=== PATIENT | female | born 1995 | race Caucasian/White ===

== ENCOUNTER 2016-09-05 15:15 | Emergency (ER) | payer BC, OTHER ==
[~2016-09-05] VITALS: Ht 170.2 cm; Wt 72.6 kg
[2016-09-05] MEDS ORDERED: BIRTH CONTOL (15:48)
[2016-09-05] MEDS ORDERED: EPIN0.3P2 IJ (15:49)
[2016-09-05] MEDS ORDERED: NS IV 1000 ML 1,000 ML IV STA (15:59)
[2016-09-05] MEDS ORDERED: KETOROLAC 30 MG/ML VIAL IVP STA (15:59)
[2016-09-05] MEDS ORDERED: fentaNYL INJECTION 100 MCG/2 ML AMP IVP STA (15:59)
[2016-09-05] MEDS ORDERED: ONDANSETRON 4 MG/2 ML (SDV) Z0FRAN IVP ONE (16:00)
--- NOTE | 2016-09-05 16:07 | ED GU-Female ---
General Chief Complaint: Back Problems Stated Complaint: POSSIBLE KIDNEY STONES Nursing Triage Note: STATES YESTERDAY SHE HAD BLOOD IN HER URINE. TODAY THINKS SHE PASSED A KIDNEY STONE WHILE IN THE SHOWER. COMPLAINS OF SEVERE LOWER BACK PAIN. TYLENOL 100MG TAKEN AT 1100. Nursing Sepsis Screen: No Definite Risk Source: patient Exam Limitations: no limitations History of Present Illness Time seen by provider: 15:50 Initial Comments Here with report of pain to the left flank and blood in her urine. She noted that she had a stone like object pass when she was urinating in the shower. She does complain of fever this morning and chills. She did take Tylenol 1000 mg at 11 a.m. and that seemed to help call now. Pain has persisted. She has nausea. Reports pain is sharp and persistent to the left low back. Timing/Duration: getting worse Severity/Quality: moderate, severe, sharp Location: left flank Radiation: none Activities at Onset: none Sexual Cyrus History: not active (last 1 year ago.) Modifying Factors: Worsens With Urinating Associated Symptoms: abdominal pain dysuria fever/chills lower back pain nausea/vomiting urinary frequency Allergies and Home Medications Allergies Coded Allergies: No Known Drug Allergies (Unverified , 09/05/16) Home Medications (Reported) Epinephrine 0.3 Mg/0.3 Ml Auto.injct 0.3 MG IJ (Reported) Constitutional: see HPI chills feverNo weakness EENTM: no symptoms reported Respiratory: no symptoms reportedNo cough, No short of breath Cardiovascular: no symptoms reportedNo chest pain, No palpitations Gastrointestinal: abdominal pain nauseaNo vomiting Genitourinary: dysuria pain urgency Musculoskeletal: back painNo muscle cramps Skin: no symptoms reported Psychiatric/Neurological: No Symptoms Reported Endocrine: No Symptoms Reported All Other Systemes Reviewed Negative Unless Noted: Yes Past Aakywzk-Wjtecm-Jloawo Hx Patient Social History Alcohol Use: Occasionally Uses Recreational Drug Use: No Smoking Status: Never a Smoker Recent Foreign Travel: No Contact w/Someone Who Travel: No Recent Infectious Disease Expo: No Recent Hopitalizations: No Surgeries HX Surgeries: Yes (ESOPHOGEAL BX) Surgeries: Orthopedic Respiratory Hx Respiratory Disorders: No Cardiovascular Hx Cardiac Disorders: No Neurological Hx Neurological Disorders: No Reproductive System : No Hx Reproductive Disorders: No Genitourinary Hx Genitourinary Disorders: No Gastrointestinal Hx Gastrointestinal Disorders: Yes (CELIAC DZ) Musculoskeletal Hx Musculoskeletal Disorders: No Endocrine Hx Endocrine Disorders: No HEENT HX ENT Disorders: No Cancer Hx Cancer: No Reviewed Nursing Assessment Reviewed/Agree w Nursing PMH: Yes Family Medical History Significant Family History: No Pertinent Family Hx Physical Exam Vital Signs Vital Sign - Last 12Hours 09/05/16 15:39 Temp 97.6 Pulse 86 Resp 18 B/P 114/82 Pulse Ox 98 Capillary Refill : Less Than 3 Seconds General Appearance: WD/WN no apparent distress HEENT: PERRL/EOMI pharynx normal Neck: full range of motion supple Cardiovascular: regular rate, rhythm no murmur Respiratory: lungs clear normal breath sounds Gastrointestinal: soft tenderness (mild suprapubic) Back: normal inspection no vertebral tendernessNo CVA tenderness (R), CVA tenderness (L) Extremities: non-tender normal inspection Neurologic/Psychiatric: alert oriented x 3 Skin: normal color warm/dry Progress/Results/Core Measures Results/Orders Lab Results Laboratory Tests Test 09/05/16 16:04 09/05/16 16:10 Range/Units Alanine Aminotransferase (ALT/SGPT) 19 0-55 U/L Albumin 4.7 H 3.2-4.5 G/DL Alkaline Phosphatase 63 40-136 U/L Anion Gap 9 5-14 MMOL/L Aspartate Amino Transf (AST/SGOT) 17 5-34 U/L BUN/Creatinine Ratio 12 Basophils # (Auto) 0.0 0.0-0.1 10^3/uL Basophils (%) (Auto) 0 0-10 % Blood Urea Nitrogen 10 7-18 MG/DL C-Reactive Protein High Sensitivity 0.97 H 0.00-0.50 MG/DL Calcium Level 9.4 8.5-10.1 MG/DL Carbon Dioxide Level 22 21-32 MMOL/L Chloride Level 108 H 98-107 MMOL/L Creatinine 0.81 0.60-1.30 MG/DL Eosinophils # (Auto) 0.1 0.0-0.3 10^3/uL Eosinophils (%) (Auto) 1 0-10 % Estimat Glomerular Filtration Rate > 60 Glucose Level 84 70-105 MG/DL Hematocrit 46 35-52 % Hemoglobin 15.7 11.5-16.0 G/DL Lymphocytes # (Auto) 2.4 1.0-4.0 X 10^3 Lymphocytes (%) (Auto) 27 12-44 % Mean Corpuscular Hemoglobin 31 25-34 PG Mean Corpuscular Hemoglobin Concent 34 32-36 G/DL Mean Corpuscular Volume 91 80-99 FL Mean Platelet Volume 11.7 H 7.4-10.4 FL Monocytes # (Auto) 0.8 0.0-1.0 X 10^3 Monocytes (%) (Auto) 10 0-12 % Neutrophils # (Auto) 5.5 1.8-7.8 X 10^3 Neutrophils (%) (Auto) 62 42-75 % Platelet Count 266 130-400 10^3/uL Potassium Level 4.1 3.6-5.0 MMOL/L Red Blood Count 5.05 4.35-5.85 10^6/uL Red Cell Distribution Width 13.0 10.0-14.5 % Sodium Level 139 135-145 MMOL/L Total Bilirubin 0.3 0.1-1.0 MG/DL Total Protein 7.6 6.4-8.2 G/DL White Blood Count 8.8 4.3-11.0 10^3/uL Urine Bacteria NONE /HPF Urine Bilirubin NEGATIVE NEGATIVE Urine Casts NONE /LPF Urine Clarity SLIGHTLY CLOUDY Urine Color YELLOW Urine Crystals NONE /LPF Urine Culture Indicated NO Urine Glucose (UA) NEGATIVE NEGATIVE Urine Ketones NEGATIVE NEGATIVE Urine Leukocyte Esterase NEGATIVE NEGATIVE Urine Mucus SMALL H /LPF Urine Nitrite NEGATIVE NEGATIVE Urine Protein NEGATIVE NEGATIVE Urine RBC 5-10 H /HPF Urine RBC (Auto) 2+ H NEGATIVE Urine Specific [place] 1.015 L 1.016-1.022 Urine Squamous Epithelial Cells 0-2 /HPF Urine Urobilinogen NORMAL NORMAL MG/DL Urine WBC NONE /HPF Urine pH 6 5-9 My Orders Orders-MOO LEVY MD Ua Culture If Indicated (09/05/16 15:40) Cbc With Automated Diff (09/05/16 15:59) Comprehensive Metabolic Panel (09/05/16 15:59) Hs C Reactive Protein (09/05/16 15:59) Ondansetron Injection (Zofran Injectio (09/05/16 16:00) Ns Iv 1000 Ml (Sodium Chloride 0.9%) (09/05/16 15:59) Saline Lock/Iv-Start (09/05/16 15:59) Fentanyl Injection (Sublimaze Injection (09/05/16 15:59) Ketorolac Injection (Toradol Injection) (09/05/16 15:59) Ct Abd/Pelvis Wo(Kidney Stone) (09/05/16 16:07) Medications Given in ED Current Medications Medications Dose Ordered Sig/Ben Route Start Time Stop Time Status Last Admin Dose Admin Ondansetron HCl 4 mg ONCE ONCE IVP 09/05/16 16:00 09/05/16 16:01 DC 09/05/16 16:16 4 MG Vital Signs/I&O Vital Sign - Last 12Hours 09/05/16 15:39 Temp 97.6 Pulse 86 Resp 18 B/P 114/82 Pulse Ox 98 Blood Pressure Mean: 93 Progress Note : Progress Note Seen and evaluated. IV, labs, UA, normal saline 1 L bolus, fentanyl 50 g IV, Toradol 30 mg IV and Zofran [address] abdomen and pelvis kidney stone protocol ordered. Monitor patient. Patient states that she has not been sexually active for one year and is agreeable to signing waiver. 1750: Overall improved. No significant findings except for trace blood in the urine. Likely patient passed stone earlier. We will treat outpatient with antibiotics and have her follow-up as needed. Discharged home with return precautions. Patient verbalize understanding instructions and agreement with plan. Diagnostic Imaging Diagonstic Imaging: CT Plain Films/CT/US/NM/MRI: abdomen, pelvis Comments VIA [facility], [facility]. ISSUE, [place] NAME: EVERETTEGLORIA Cornelia [facility] REC#: [id number] PT STATUS: REG ER : 1995 PHYSICIAN: MOO LEVY MD ADMIT DATE: 09/05/16/ER Draft Date of Exam:09/05/16 CT ABD/PELVIS WO(KIDNEY STONE) PROCEDURE: CT urinary tract, rule out kidney stone. TECHNIQUE: Multiple contiguous axial images were obtained through the abdomen and pelvis without the use of intravenous contrast. INDICATION: Bilateral lower abdominal pain. FINDINGS: The lung bases appear clear. The liver, spleen, pancreas and adrenal glands appear unremarkable for an unenhanced exam. Hypodensity near the gallbladder is probably an artifact from adjacent duodenum with no definite calcified stone. The kidneys demonstrate no hydronephrosis. No urinary tract stones. The abdominal aorta is normal in caliber. No para-aortic significantly enlarged lymph nodes are seen. The uterus and adnexa appear grossly unremarkable. There is no significant free fluid or fluid collection in the abdomen or pelvis seen. There is no bowel obstruction. Small to moderate amount of fecal material is seen in the colon. The cecum projects into the right side of the pelvis. The appendix is not seen. The osseous structures appear grossly unremarkable. IMPRESSION: No urinary tract stones or hydronephrosis. Dictated on workstation # [id number] Dict: 09/05/16 1636 Trans: 09/05/16 1650 PJE [id number] Interpreted by: MIRLANDE BARGER MD Electronically signed by: Departure Impression Impression: Primary Impression: Kidney stone on left side Disposition: HOME, SELF-CARE Condition: Improved Departure-Patient Inst. Decision time for Depature: 17:50 Referrals: NO,LOCAL PHYSICIAN (PCP/Family) Primary Care Physician Patient Instructions: Kidney Stones in Adults Add. Discharge Instructions: All discharge instructions reviewed with patient and/or family. Voiced understanding. Take medications as directed. Follow-up with your Dr. in a few days for recheck. Return for worse pain, fever, vomiting, weakness, breathing problems or other concerns as needed. Drink plenty of fluids. He may take ibuprofen 800 mg every 8 hours as needed for pain. You may take Tylenol 1000 mg every 8 hours as needed for pain but do not take Tylenol with the hydrocodone containing medication as they both have Tylenol in it. Scripts Cephalexin 500 Mg Scpato018 Mg PO BID #10 TAB Ref 0 Prov:MOO LEVY MD 09/05/16 Hydrocodone/Acetaminophen (Hydrocodon -Acetaminophen 5-325)1 Each Tablet1 Each PO Q6H PRN PAIN #5 TAB Ref 0 Prov:MOO LEVY MD 09/05/16 MOO LEVY MD Sep 05, 2016 16:07
[2016-09-05 16:10] LABS: BASOPHILS % (AUTO) 0 % (0-10); EOSINOPHILS # (AUTO) 0.1 10^3/uL (0.0-0.3); EOSINOPHILS % (AUTO) 1 % (0-10); LYMPHOCYTES # (AUTO) 2.4 X 10^3 (1.0-4.0); LYMPHOCYTES % (AUTO) 27 % (12-44); MEAN CORPUSCULAR HEMOGLOBIN 31 PG (25-34); MEAN CORPUSCULAR HGB CONC 34 G/DL (32-36); MEAN CORPUSCULAR VOLUME 91 FL (80-99); MEAN PLATELET VOLUME 11.7 FL (7.4-10.4); MONOCYTES # (AUTO) 0.8 X 10^3 (0.0-1.0); MONOCYTES % (AUTO) 10 % (0-12); NEUTROPHILS # (AUTO) 5.5 X 10^3 (1.8-7.8); NEUTROPHILS % (AUTO) 62 % (42-75); PLATELET COUNT 266 10^3/uL (130-400); RED BLOOD COUNT 5.05 10^6/uL (4.35-5.85); WHITE BLOOD COUNT 8.8 10^3/uL (4.3-11.0)
[2016-09-05 16:20] LABS: BILIRUBIN,URINE NEGATIVE (NEGATIVE); KETONES,URINE NEGATIVE (NEGATIVE); LEUKOCYTE ESTERASE ,URINE NEGATIVE (NEGATIVE); NITRITE,URINE NEGATIVE (NEGATIVE); PH,URINE 6 (5-9); PROTEIN,URINE NEGATIVE (NEGATIVE); UROBILINOGEN,URINE NORMAL (NORMAL)
[2016-09-05 16:27] LABS: ALANINE AMINOTRANSFERASE 19 U/L (0-55); ALBUMIN 4.7 G/DL (3.2-4.5); ANION GAP 9 MMOL/L (5-14); ASPARTATE AMINO TRANSFERASE 17 U/L (5-34); BILIRUBIN,TOTAL 0.3 MG/DL (0.1-1.0); BLOOD UREA NITROGEN 10 MG/DL (7-18); BUN/CREATININE RATIO 12; CALCIUM 9.4 MG/DL (8.5-10.1); CARBON DIOXIDE 22 MMOL/L (21-32); CHLORIDE 108 MMOL/L (98-107); CREATININE SERUM 0.81 MG/DL (0.60-1.30); GFR ESTIMATED > 60; GLUCOSE 84 MG/DL (70-105); POTASSIUM 4.1 MMOL/L (3.6-5.0); SODIUM 139 MMOL/L (135-145); TOTAL PROTEIN 7.6 G/DL (6.4-8.2); hs C REACTIVE PROTEIN 0.97 MG/DL (0.00-0.50)
[2016-09-05 16:43] LABS: SQUAMOUS EPITHELIAL CELL,UR 0-2 /HPF
--- NOTE | 2016-09-05 16:51 | Diagnostic Imaging Report ---
PROCEDURE: CT urinary tract, rule out kidney stone. TECHNIQUE: Multiple contiguous axial images were obtained through the abdomen and pelvis without the use of intravenous contrast. INDICATION: Bilateral lower abdominal pain. FINDINGS: The lung bases appear clear. The liver, spleen, pancreas and adrenal glands appear unremarkable for an unenhanced exam. Hypodensity near the gallbladder is probably an artifact from adjacent duodenum with no definite calcified stone. The kidneys demonstrate no hydronephrosis. No urinary tract stones. The abdominal aorta is normal in caliber. No para-aortic significantly enlarged lymph nodes are seen. The uterus and adnexa appear grossly unremarkable. There is no significant free fluid or fluid collection in the abdomen or pelvis seen. There is no bowel obstruction. Small to moderate amount of fecal material is seen in the colon. The cecum projects into the right side of the pelvis. The appendix is not seen. The osseous structures appear grossly unremarkable. IMPRESSION: No urinary tract stones or hydronephrosis. Dictated by: Dictated on workstation # [id number]
[2016-09-05] MEDS ORDERED: CEPH500T PO (17:58)
[2016-09-05] MEDS ORDERED: HYDR-3812 PO (17:58)
[2016-09-05 18:01] VITALS: BP 105/67
== END 2016-09-05 18:01 | disposition home or self-care (01) ==
LOC: ER 15:18
DX: N20.0 Calculus of kidney (principal)
CPT/HCPCS: 36415; 74176; 80053; 81000; 84703; 85025; 86141; 96361; 96374; 96375

== ENCOUNTER → 2017-10-11 | Outpatient (CLI) | payer BC ==
[~2017-10-11] MED LIST: ACHD5005 PO; BIRTH CONTOL; CEPH500T PO; EPIN0.3P2 IJ
--- NOTE | 2017-10-11 08:43 | Diagnostic Imaging Report ---
PROCEDURE: US abdomen complete. TECHNIQUE: Multiple real-time grayscale images were obtained over the abdomen in various projections. INDICATION: Abdominal pain and diarrhea. The pancreas is unremarkable. The visualized aorta is non-aneurysmal. The IVC is unremarkable. The liver is mildly enlarged at 19 cm. No discrete liver mass is identified. The portal vein is patent and shows normal direction of flow. The gallbladder is unremarkable. No stones or sludge are identified. There is no gallbladder wall thickening. No pericholecystic fluid or biliary ductal dilatation is identified. The extrahepatic bile duct is 4 mm. The spleen is normal in size at 10.1 cm. The right and left kidneys are unremarkable. There is no ascites. IMPRESSION: Mild hepatomegaly. The study is otherwise unremarkable. Dictated by: Dictated on workstation # [id number]
== END ==
LOC: RAD 06:53
PROVIDERS: ATTEND Family Medicine
DX: R16.0 Hepatomegaly, not elsewhere classified (principal); R19.7 Diarrhea, unspecified; R10.9 Unspecified abdominal pain
CPT/HCPCS: 76700